=== PATIENT | male | born 1945 | race Caucasian/White ===

== ENCOUNTER → 2021-10-29 09:29 | Outpatient (CLI) | payer MEDICARE, SELFPAY ==
--- NOTE | ~2021-10-29 | XR_ITS ---
XR abdomen/kub 1V 10/29/2021 09:47 Indication: Right ureteral stone Procedure: KUB Comparison: No prior studies for comparison. Findings: There is a right renal stone measuring approximately 5 mm. There are pelvic phleboliths. Th ere are cholecystectomy clips. There are calcified granulomas of the spleen. Bowel gas pattern nonobs tructive with moderate colonic fecal loading. 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 There is moderate osteoarthritis of the hips. There is lumba r spondylosis. Impression: 1: Right nephrolithiasis. Reviewed, dictated and finalized at location A. T TRIMMER Impression: 1: Right nephrolithiasis.
== END ==
PROVIDERS: PCP Family Medicine; Visit Provider Urology
DX: N20.0 Calculus of kidney (principal)
CPT/HCPCS: 74018

== ENCOUNTER 2021-10-30 02:23 | Day surgery (SDC) | payer MEDICARE, SELFPAY ==
[2021-10-29 15:01] VITALS: BMI 28.6
--- NOTE | 2021-10-29 15:40 | PC.NURSE ---
Report to the Outpatient Waiting Room, entrance under the green pavilion located off [facility], at time _9:45AM on date _10/30/21 . OR Time: __11:45AM . - You and your visitor will be asked a series of questions to screen for COVID 19 for your protection. - A mask is required within the hospital. Preoperative COVID Testing Requirements: No COVID Test needed if: (proof is required; if not received patient will have Rapid Test prior to entry) - Patient has received COVID Vaccine at least 14 days prior to procedure date or - Patient has positive COVID test result within last 90 days of surgery date. COVID Test needed if above criteria is not met If not COVID vaccinated a COVID test must be conducted within 72 hours of surgery and patient is asked to isolate self from time of testing until procedure. You will go to the [employer] [facility] for your COVID testing. The [facility] is located at the corner of [address] [facility]. You will only be called if COVID results are positive and your surgeon may reschedule your elective surgery date. Patients may have clear liquids (water, carbonated beverages, clear teas, apple juice) until 3 hours prior to surgery with a maximum of 20 ounces. - No food from midnight until time of surgery - Infants may have breast milk until 4 hours before surgery, formula 6 hours prior to surgery. - Children will be allowed to drink immediately following surgery. If applicable, please bring a bottle or sippy cup to assist with drinking. Juice, water, soda, and popsicles are readily available. For infants on formula, please bring formula the day of surgery. Pacifiers are allowed. Take the following medications with a SIP of water the morning of surgery: ___PRIMIDONE, PROPRANOLOL, HYDROCODONE PRN, ZOFRAN PRN Medications to discontinue per physician ALL VITAMINS/SUPPLEMENTS-TODAY Date to take last dose Please no make-up, nail sri lankan, hairspray, perfume, deodorant, or body powder the day of surgery. No jewelry (including any body piercings) or valuables the day of surgery, leave them at home. Please take a shower or bath the night before, or the morning of, surgery with an antibacterial soap. Wear comfortable, loose fitting clothing. Children are encouraged to wear pajamas. - Jewelry must be removed prior to entering the operating room. Rings and piercings that are not removed may be cut off. - The hospital will not accept responsibility for valuables. - Please leave all valuables, including medications, at home the day of surgery. If you are going home after surgery, a licensed cab driver must drive you home. - NO public transportation without another adult. - We recommend that an adult stay with you for 24 hours following discharge. - We also recommend that you do not drive, make important decision, drink alcoholic beverages, or take any drugs that were not prescribed by your health care provider for at least 24 hours after your discharge time. For Pediatric surgeries, we recommend two adults accompany the child home (only one inside the building at this time). One visitor will be allowed to accompany the patient into the hospital. Patients visitor will be instructed to remain with patient at all times or leave the building. We will allow the visitor to come back to the postoperative area when patient is ready. Follow any additional instructions given to you from your surgeon. Telephone instructions given to ____PATIENT and asked if any additional questions and then verbalized understanding. Patient advised to call surgeon office or pre surgery nurse liaison [phone] if any additional questions.
[2021-10-30] VITALS (9 sets, daily range): BP systolic 100–166; BP diastolic 59–72; PULSE 53–66; RESP 10–18; TEMP 36.1–36.4; O2SAT 97–100
--- NOTE | ~2021-10-30 | XR_ITS ---
XR retrograde pyelo w/stent RT DATE: 10/30/2021 12:40 INDICATION: Right ureteral dilatation TECHNIQUE: 219.5 seconds fluoroscopy time 3.27 mGym2 COMPARISON: 10/29/2021 KUB FINDINGS: Retrograde pyelogram on the right reveals a narrowed area in the distal ureter which may be due to stricture, with mild proximal dilatation. Subsequent images reveal a balloon catheter inflated in this area. There is subsequent placement of a right internal urinary stent in expected position. IMPRESSION: Balloon dilatation of distal ureteral stricture; subsequent placement of right internal u rinary stent Reviewed, dictated and finalized at Location A. Reviewed, dictated and finalized at location A. NET C DEVELOPER IMPRESSION: Balloon dilatation of distal ureteral stricture; subsequent placeme nt of right internal urinary stent
--- NOTE | 2021-10-30 06:29 | WPDHPUPDATE1 ---
History and Physical Update Update Date/Time: 10/30/21 06:29 History and Physical has been reviewed, including an updated exam of the patient. There are NO changes in the patient's condition. Risks, benefits, and alternatives have been discussed and questions answered. Patient agrees to proceed with procedure.
[2021-10-30] MEDS: LACTATED RINGERS 1,000 ML 30 ML IV CONT ×2 (10:13→12:42)
--- NOTE | 2021-10-30 10:31 | WPDANESEPPF ---
Anes - Initial Pre Proc Eval Procedure: Operation Date: 10/30/21 11:45 Proposed Procedures p Cystoscopy, Right Ureteroscopy, Right Stone Extraction, Possible Right Stent Placement, Possible Right Retrograde Pyelogram, - Jose Coronel MD s Possible Laser Lithotripsy - Jose Coronel MD Date/Time: 10/30/21 10:31 Surgeon: Jose Coronel MD Pre Op Diagnosis: right ureteral stone Patient Data Age: 76 Gender: M Height: 1.7 m Weight: 83 kg Last Vital Signs Temp 36.4 C 10/30/21 10:28 Pulse 55 L 10/30/21 10:28 Resp 18 10/30/21 10:28 BP 130/59 L 10/30/21 10:28 Pulse Ox 97 10/30/21 10:28 Allergies Allergy/AdvReac Type Severity Reaction Status Date / Time No Known Allergies Allergy Verified 10/30/21 10:21 Home Medications Medication Instructions Recorded Confirmed Type finasteride 5 mg PO DAILY 10/29/21 10/30/21 History geriatric multivitamin-min 1 tablet PO DAILY 10/29/21 10/30/21 History [Multiple Vitamins 55 Plus] hydrocodone-acetaminophen 1 tablet PO Q8-10H PRN 10/29/21 10/30/21 History ondansetron 4 mg PO Q4-5H PRN 10/29/21 10/30/21 History primidone 50 mg PO 6XD 10/29/21 10/30/21 History propranolol 60 mg PO BID 10/29/21 10/30/21 History tamsulosin 0.4 mg PO DAILY 10/29/21 10/30/21 History Patient hx anesthesia problems: none Family hx anesthesia problems: none Results Review: All pre-operative results and documents have been reviewed as part of the pre-operative evaluation. [facility] Past Medical History Medical History Prostate cancer Tremor Social History Social History Smoking status: Never smoker Substance use: never Living arrangements: with family Additional living arrangements comments: Spiritual care concerns: No Anes - Eval Final PreProcedure Day of Procedure 10/30/21 10:31 Patient weight: overweight Heart: regular rate and rhythm Lungs: clear to auscultation Airway: Mallampati scale class II Neurological: alert and oriented Last oral intake: >/= 8 hours ASA classification: III Emergent: no Anesthetic plan: proceed Anesthesia type and monitoring: general LMA and standard monitoring Results Review: All pre-operative results and documents have been reviewed as part of the pre-operative evaluation. Informed Consent: The patient's anesthetic plan and its attendant risks and benefits were discussed with the patient/family/POA. Questions were solicited and answers provided to the satisfaction of the patient/family/POA.
[2021-10-30] MEDS: ceFAZolin 2 GM/D5W 50 ML 2 GM/50 ML BAG IVPB (11:28)
--- NOTE | 2021-10-30 12:12 | W.PM.PROC2 ---
Procedure Note - Detailed Date of Procedure 10/30/21 Pre-op Diagnosis Right ureteral and right renal stone Post-op Diagnosis Same Procedure Performed Cystoscopy, right retrograde pyelography, right ureteroscopy and right ureteral stent placement Surgeon Jose Coronel MD Anesthesia General Description of Procedure Patient brought to the operative suite was prepped and draped in routine sterile fashion while in dorsal lithotomy position after the uneventful induction of a general LMA anesthetic. Cystoscopy is undertaken with a 19 F rigid cystoscope. There was no urethral stricture. He has minimal residual prostate tissue following recent pelvic radiation for prostate cancer. He does have a somewhat high median bar. The bladder is slightly trabeculated. He has a single orthotopic ureteral orifice bilaterally. An 8 F bulb-tipped catheter was used to obtain a right retrograde pyelogram. There is narrowing in the right mid ureter at the iliac vessels with the suggestion of a double density that point represents a ureteral stone. Dilated the distal ureter with an 8 F 10 F dilator. I attempted to place a 7.5 F flexible ureteral scope could not advance beyond this point of narrowing in the right mid ureter at the iliac vessels. I dilated with a 10 cm balloon at 12 atmospheres for 4 minutes and still could not get a ureteral scope beyond that point. I tried both a and long and digital flexible ureteral scope. At this point I opted to place a 6 F variable length ureteral stent and allow for passive dilatation of the ureter. Will plan repeat axial imaging with either ESWL or ureteroscopy in approximately 1-2 weeks. Drains Yes Packing No Pathology None sent Complications No immediate complications Condition Stable Disposition PACU
== END 2021-10-30 14:45 | disposition home or self-care (01) ==
PROVIDERS: PCP Family Medicine; Visit Provider Urology
PROC: (CPT 52352; principal; 2021-10-30 11:45)
DX: N20.2 Calculus of kidney with calculus of ureter (principal); R10.9 Unspecified abdominal pain; R35.1 Nocturia; C61 Malignant neoplasm of prostate; Z90.49 Acquired absence of other specified parts of digestive tract; R25.1 Tremor, unspecified
CPT/HCPCS: 52332; 74420; A9270; C1726; C1758; C1769; C2617; J0690; J1100; J2370; J2405; J2704; J3010; J7120; Q9966

== ENCOUNTER 2021-10-31 08:46 | Emergency (ER) | payer MEDICARE, SELFPAY ==
--- NOTE | ~2021-10-31 | XR_ITS ---
EXAMINATION: XR abdomen/kub 1V DATE: 10/31/2021 10:07 INDICATION: Urolithiasis. TECHNIQUE: A supine view of the abdomen on 2 radiographs was obtained. COMPARISON: Abdomen radiographs 10/29/2021 FINDINGS: There are no dilated loops of bowel. There is a right internal ureteral stent in expected p osition. Surgical clips in the right upper quadrant are likely from cholecystectomy. Brachytherapy se eds overlie the prostate. There is internal fixation of right femur. IMPRESSION: 1. Right internal ureteral stent in expected position. No visible urolithiasis. Reviewed, dictated and finalized at location A. TH PROFESSOR
[2021-10-31 08:49] VITALS: BP 153/59; PULSE 62; RESP 18; TEMP 37; O2SAT 97
[2021-10-31 09:24] LABS: Basophils Percent Auto 0.1 % (0.2-1.2); Eosinophils Percent Auto 0.2 % (0-4.4); Hematocrit 43.9 % (42.0-52.0); Immature Granulocyte Absolute 0.04 K/mm3 (0.00-0.031); Immature Granulocyte Percent A 0.4 % (0-0.5); Lymphocytes Absolute Auto 0.45 K/mm3 (0.9-3.2); Mean Corpuscular HGB Conc 34.2 g/dl (32-36); Mean Corpuscular Hemoglobin 30.1 pg (26-34); Mean Platelet Volume 9.9 fl (7.4-10.4); Monocytes Absolute Auto 0.7 K/mm3 (0.1-0.6); Neutrophils Percent Auto 89.3 % (45.5-73.1); Platelet Count Result 155 k/mm3 (150-375); Red Blood Count 4.99 M/mm3 (4.6-6.20); White Blood Count 11.2 K/mm3 (4.5-10.0)
[2021-10-31 09:34] LABS: Add Urine Microscopic? YES; Appearance Urine Cloudy (Clear); Bacteria Urine 4+ /hpf; Bilirubin Urine Negative (Negative); Blood Urine 3+ (Negative); Color Urine Yellow (Yellow); Glucose Urine UA Negative (Negative); Ketones Urine 1+ mg/dL (Negative); Leukocyte Esterase Ur Negative LEU/UL (Negative); Mucus Urine Rare /lpf; Nitrate Urine Negative (Negative); Protein Urine 1+ mg/dL (Negative); RBC Urine >75 /hpf (0-2); Specific Grav Ur 1.014 (1.001-1.035); Urobilinogen Urine Negative mg/dL (<2.0)
[2021-10-31] MEDS: MORPHINE SULFATE (*CRX) 4 MG/ML INJ IV PUSH (09:41)
--- NOTE | 2021-10-31 09:44 | PC.NURSE ---
Pt states he took home prescribed zofran at approx 0800 this morning.
--- NOTE | 2021-10-31 09:48 | ED.ABDPAIN ---
HPI - Abdominal Pain General Chief Complaint: Abdominal Pain <MAJO Schreiber Last Filed: 10/31/21 13:19> Stated Complaint: pain lower abd /back <MAJO Schreiber Last Filed: 10/31/21 13:19> Time Seen by Provider: 10/31/21 09:08 <MAJO Schreiber Last Filed: 10/31/21 13:19> Source: patient <MAJO Schreiber Last Filed: 10/31/21 13:19> Mode of arrival: ambulatory <MAJO Schreiber Last Filed: 10/31/21 13:19> Limitations: no limitations <MAJO Schreiber Last Filed: 10/31/21 13:19> History of Present Illness HPI narrative: This is a 76-year-old male that presents to the emergency department for right flank pain present since last night. Reports he had a ureteral stent placed on the right by Dr. Coronel. Ever since this procedure he has had right lower quadrant and flank pain. Especially with urination. Not controlled with his oral pain medications. Initially he had blood in the urine, this has seemed to clear up. Denies fever or vomiting. <MAJO Schreiber Last Filed: 10/31/21 13:19> Related Data Home Medications: Home Medications Medication Instructions Recorded Confirmed finasteride 5 mg PO DAILY 10/29/21 10/30/21 geriatric multivitamin-min 1 tablet PO DAILY 10/29/21 10/30/21 hydrocodone-acetaminophen 1 tablet PO Q8-10H PRN 10/29/21 10/30/21 ondansetron 4 mg PO Q4-5H PRN 10/29/21 10/30/21 primidone 50 mg PO 6XD 10/29/21 10/30/21 propranolol 60 mg PO BID 10/29/21 10/30/21 tamsulosin 0.4 mg PO DAILY 10/29/21 10/30/21 <MAJO Schreiber Last Filed: 10/31/21 13:19> Allergies/Adverse Reactions: Allergies Allergy/AdvReac Type Severity Reaction Status Date / Time No Known Allergies Allergy Verified 10/30/21 10:21 <Iris Love PA-C - Last Filed: 10/31/21 13:19> Review of Systems Review of Systems: CONSTITUTIONAL: Denies fever GASTROINTESTINAL: Reports abdominal pain. Denies nausea, vomiting GENITOURINARY: Reports dysuria and hematuria. <Iris Love PA-C - Last Filed: 10/31/21 13:19> All systems reviewed & are unremarkable except as noted in HPI and below <Iris Love PA-C - Last Filed: 10/31/21 13:19> PMFSH Past Medical History Medical History: Medical History Prostate cancer Tremor <Iris Love PA-C - Last Filed: 10/31/21 13:19> Social History Social History: Social History Smoking status: Never smoker Substance use: never Additional living arrangements comments: Spiritual care concerns: No <MAJO Schreiber Last Filed: 10/31/21 13:19> Exam Narrative: GENERAL: Well-appearing, well-nourished, and in no acute distress. HEAD: Normocephalic, atraumatic. EYES: EOMI. CHEST: Clear to auscultation. No respiratory distress. No wheezes rales or rhonchi HEART: Regular rate and rhythm. No murmur heard. Normal peripheral pulses. ABDOMEN: Soft, nondistended, normal active bowel sounds. Tender to palpation in the right lower quadrant, without guarding EXTREMITIES: Normal range of motion. No edema. SKIN: Warm, dry, no rash. NEURO: No focal deficits. Alert and oriented x3. PSYCH: Normal mood and affect <Iris Love PA-C - Last Filed: 10/31/21 13:19> Course Vital Signs Vital signs: Vital Signs Temperature 98.6 F 10/31/21 08:49 Pulse Rate 62 10/31/21 08:49 Respiratory Rate 18 10/31/21 08:49 Blood Pressure 153/59 H 10/31/21 08:49 Pulse Oximetry 97 10/31/21 08:49 Temperature 98.6 F 10/31/21 08:49 Pulse Rate 75 10/31/21 13:28 Respiratory Rate 16 10/31/21 13:28 Blood Pressure 117/61 10/31/21 13:28 Pulse Oximetry 97 10/31/21 13:28 <Iris Lvoe PA-C - Last Filed: 10/31/21 13:19> MDM - Abdominal Pain MDM Narrative Medical decision making narrative: Patient presents to the
[2021-10-31 10:16] LABS: Alanine Aminotransferase 27 U/L (4-50); Albumin Level 3.9 g/dL (3.5-5.1); Alkaline Phosphatase 106 U/L (38-126); Anion Gap 8 mmol/L (8-16); Aspartate Amino Transferase 31 U/L (17-59); Bilirubin,Total 0.4 mg/dL (0.2-1.3); Blood Urea Nitrogen 21 mg/dL (9-20); Calcium 8.6 mg/dL (8.4-10.2); Carbon Dioxide 29 mmol/L (22-30); Chloride 99 mmol/L (98-107); Estimated CRCL calculation 31 ml/min; Estimated Glomerular Filt Rate 37; Glucose 127 mg/dL (65-110); Potassium 4.1 mmol/L (3.4-5.0); Sodium 136 mmol/L (137-145)
--- NOTE | 2021-10-31 11:03 | PC.NURSE ---
Pt states he has attempted to urinated 2x with only dribbles . Pt bladder scanned and shown to have approx 420ml in bladder. PA notified.
[2021-10-31] MEDS: SODIUM CHLORIDE 0.9% IV 500 ML 999 ML IV CONT (11:05)
[2021-10-31] MEDS: KETOROLAC 15 MG/ML VIAL (*BKC) IV PUSH (12:04)
[2021-10-31 13:28] VITALS: BP 117/61; PULSE 75; RESP 16; O2SAT 97
== END 2021-10-31 13:29 | disposition home or self-care (01) ==
PROVIDERS: Emergency Provider General Practice; PCP Family Medicine
DX: R33.9 Retention of urine, unspecified (principal); T83.84XA Pain due to genitourinary prosthetic devices, implants and grafts, initial encounter; Z85.46 Personal history of malignant neoplasm of prostate; Y73.2 Prosthetic and other implants, materials and accessory gastroenterology and urology devices associated with adverse incidents
CPT/HCPCS: 36415; 51702; 74018; 80053; 81001; 85025; 87086; 96361; 96365; 96375; 99284; J0131; J1885; J2270; J7040

== ENCOUNTER 2021-11-04 09:18 | Outpatient (CLI) | payer MEDICARE, SELFPAY ==
[2021-11-04 09:54] LABS: Prothrombin Time 13.2 Seconds (11.1-14.7)
== END 2021-11-04 09:19 | disposition home or self-care (01) ==
LOC: ANHSURGERY 09:25
PROVIDERS: PCP Family Medicine; Visit Provider Urology
DX: N20.2 Calculus of kidney with calculus of ureter (principal); Z01.818 Encounter for other preprocedural examination
CPT/HCPCS: 36415; 85610; 85730

== ENCOUNTER 2021-11-07 02:28 | Day surgery (SDC) | payer MEDICARE, SELFPAY ==
[2021-11-03 10:04] VITALS: BMI 28.6
--- NOTE | 2021-11-03 10:29 | PC.NURSE ---
ARRIVE AT 7:00AM TO IMAGING CENTER FOR SCHEDULED CT SCAN ON 11/07/21. Report to the Outpatient Waiting Room, entrance under the green pavilion located off [facility], at time _9:00AM on date _11/07/21 . OR Time: __11:00AM . - You and your visitor will be asked a series of questions to screen for COVID 19 for your protection. - A mask is required within the hospital. Preoperative COVID Testing Requirements: No COVID Test needed if: (proof is required; if not received patient will have Rapid Test prior to entry) - Patient has received COVID Vaccine at least 14 days prior to procedure date or - Patient has positive COVID test result within last 90 days of surgery date. COVID Test needed if above criteria is not met If not COVID vaccinated a COVID test must be conducted within 72 hours of surgery and patient is asked to isolate self from time of testing until procedure. You will go to the [facility] for your COVID testing. The [facility] is located at the corner of [address] [facility]. You will only be called if COVID results are positive and your surgeon may reschedule your elective surgery date. Patients may have clear liquids (water, carbonated beverages, clear teas, apple juice) until 3 hours prior to surgery with a maximum of 20 ounces. - No food from midnight until time of surgery 7:00AM, UNLESS OTHERWISE INSTRUCTED TO HOLD LIQUIDS PRIOR TO CT SCAN - Infants may have breast milk until 4 hours before surgery, formula 6 hours prior to surgery. - Children will be allowed to drink immediately following surgery. If applicable, please bring a bottle or sippy cup to assist with drinking. Juice, water, soda, and popsicles are readily available. For infants on formula, please bring formula the day of surgery. Pacifiers are allowed. Take the following medications with a SIP of water the morning of surgery: PROPRANOLOL, PRIMIDONE, HYDROCODONE NEEDED, ONDANSETRON NEEDED Medications to discontinue per physician ALL VITAMINS/SUPPLEMENTS 3 DAYS PRE-OP Date to take last dose 11/03/21 Please no make-up, nail indian, hairspray, perfume, deodorant, or body powder the day of surgery. No jewelry (including any body piercings) or valuables the day of surgery, leave them at home. Please take a shower or bath the night before, or the morning of, surgery with an antibacterial soap. Wear comfortable, loose fitting clothing. Children are encouraged to wear pajamas. - Jewelry must be removed prior to entering the operating room. Rings and piercings that are not removed may be cut off. - The hospital will not accept responsibility for valuables. - Please leave all valuables, including medications, at home the day of surgery. If you are going home after surgery, a licensed route sales delivery driver must drive you home. - NO public transportation without another adult. - We recommend that an adult stay with you for 24 hours following discharge. - We also recommend that you do not drive, make important decision, drink alcoholic beverages, or take any drugs that were not prescribed by your health care provider for at least 24 hours after your discharge time. For Pediatric surgeries, we recommend two adults accompany the child home (only one inside the building at this time). One visitor will be allowed to accompany the patient into the hospital. Patients visitor will be instructed to remain with patient at all times or leave the building. We will allow the visitor to come back to the postoperative area when patient is ready. Follow any additional instructions given to you from your surgeon. Telephone instructions given to __PATIENT and asked if any additional questions and then verbalized understanding. Patient advised to call surgeon office or pre surgery nurse liaison [phone] if any additional questions.
[2021-11-07] VITALS (8 sets, daily range): BP systolic 108–135; BP diastolic 56–68; PULSE 60–97; RESP 12–16; TEMP 36.2–36.3; O2SAT 98–100; BMI 27.3
--- NOTE | ~2021-11-07 | CT_ITS ---
EXAMINATION: CT abdomen pelvis wo con DATE: 11/07/2021 07:34 INDICATION: Right ureteral stone. TECHNIQUE: Computed tomography (CT) of the abdomen and pelvis was performed without intravenous contr ast. Automated exposure control and iterative reconstruction technique were employed. The dose-length product was 239.91 mGy-cm. COMPARISON: None. FINDINGS: The visualized portions of the lung bases demonstrate minimal atelectasis. No pleural effus ion. The heart size is normal. No pericardial effusion. There is a 13 mm cyst in the liver. There are changes of cholecystectomy. The spleen, pancreas, adrenal glands, and kidneys are normal. There is a right internal ureteral stent in expected position. There is a 4 mm stone in proximal right ureter a djacent to the stent. The prostate is severely enlarged. There are brachytherapy seeds in the prostat e. The bladder is decompressed by a Grajeda catheter. There is diffuse bladder wall thickening, likely secondary to chronic outlet obstruction. There is diverticulosis of the colon without evidence of div erticulitis. There are no dilated loops of bowel. The appendix is normal. There are no pathologically enlarged lymph nodes. There is no free intraperitoneal fluid. There is internal fixation of right fe mur. There is moderate lumbar spondylosis and severe thoracic spondylosis. There is a benign bone isl and in the sacrum. IMPRESSION: 1. 4 mm stone in proximal right ureter with right internal ureteral stent in expected position. Reviewed, dictated and finalized at location A. CUTTING MACHINE OPERATOR IMPRESSION: 1. 4 mm stone in proximal right ureter with right internal ureteral stent in e xpected position.
--- NOTE | ~2021-11-07 | XR_ITS ---
EXAMINATION: XR abdomen/kub 1V DATE: 11/07/2021 08:04 INDICATION: Urolithiasis. TECHNIQUE: A supine view of the abdomen on 2 radiographs was obtained. COMPARISON: CT abdomen and pelvis 11/07/2021 FINDINGS: There are no dilated loops of bowel. There is a 4 mm stone in proximal right ureter. There is a right internal ureteral stent in expected position. Surgical clips in the right upper quadrant a re likely from cholecystectomy. There are brachytherapy seeds in the prostate. There are phleboliths in the pelvis. There is internal fixation right femur. IMPRESSION: 1. 4 mm stone in proximal right ureter with right internal ureteral stent in expected position. Reviewed, dictated and finalized at location A. E PROFESSOR IMPRESSION: 1. 4 mm stone in proximal right ureter with right internal ureteral stent in ex pected position.
--- NOTE | 2021-11-07 06:33 | WPDHPUPDATE1 ---
History and Physical Update Update Date/Time: 11/07/21 06:33 History and Physical has been reviewed, including an updated exam of the patient. There are NO changes in the patient's condition. Risks, benefits, and alternatives have been discussed and questions answered. Patient agrees to proceed with procedure.
[2021-11-07] MEDS: LACTATED RINGERS 1,000 ML 30 ML IV CONT (09:31)
--- NOTE | 2021-11-07 10:21 | WPDANESEPPF ---
Anes - Initial Pre Proc Eval Procedure: Operation Date: 11/07/21 11:00 Proposed Procedures p Right Extracorporeal Shock Wave Lithotripsy - Jose Coronel MD s Possible Right Ureteroscopy, Stone Extraction, - Jose Coronel MD s Possible Holmium Laser Procedure - Jose Coronel MD Date/Time: 11/07/21 10:21 Surgeon: Jose Coronel MD Pre Op Diagnosis: Right ureteral kidney stones Patient Data Age: 76 Gender: M Height: 1.7 m Weight: 79.2 kg Last Vital Signs Temp 36.3 C L 11/07/21 09:18 Pulse 62 11/07/21 09:18 Resp 16 11/07/21 09:18 BP 135/63 11/07/21 09:18 Pulse Ox 100 11/07/21 09:18 Allergies Allergy/AdvReac Type Severity Reaction Status Date / Time No Known Allergies Allergy Verified 11/07/21 09:16 Home Medications Medication Instructions Recorded Confirmed Type finasteride 5 mg PO DAILY 10/29/21 11/07/21 History geriatric multivitamin-min 1 tablet PO DAILY 10/29/21 11/07/21 History hydrocodone-acetaminophen 1 tablet PO Q6-8H PRN 10/29/21 11/07/21 History ondansetron 4 mg PO Q4-5H PRN 10/29/21 11/07/21 History primidone 150 mg PO BID 10/29/21 11/07/21 History propranolol 60 mg PO BID 10/29/21 11/07/21 History tamsulosin 0.4 mg PO DAILY 10/29/21 11/07/21 History phenazopyridine 200 mg PO BID PRN #6 tablet 10/31/21 11/07/21 Rx Patient hx anesthesia problems: none Family hx anesthesia problems: none Results Review: All pre-operative results and documents have been reviewed as part of the pre-operative evaluation. [facility] Past Medical History Medical History Prostate cancer Tremor Social History Social History Smoking status: Never smoker Substance use: never Living arrangements: with family Additional living arrangements comments: Spiritual care concerns: No Anes - Eval Final PreProcedure Day of Procedure 11/07/21 10:21 Patient weight: overweight Heart: regular rate and rhythm Lungs: clear to auscultation Airway: Mallampati scale class II Neurological: alert and oriented Last oral intake: >/= 8 hours ASA classification: III Emergent: no Anesthetic plan: proceed Anesthesia type and monitoring: general LMA and standard monitoring Results Review: All pre-operative results and documents have been reviewed as part of the pre-operative evaluation. Informed Consent: The patient's anesthetic plan and its attendant risks and benefits were discussed with the patient/family/POA. Questions were solicited and answers provided to the satisfaction of the patient/family/POA.
--- NOTE | 2021-11-07 11:38 | W.PM.PROC2 ---
Procedure Note - Detailed Date of Procedure 11/07/21 Pre-op Diagnosis Right ureteral kidney stone Post-op Diagnosis Same Procedure Performed Right ESWL Surgeon Jose Coronel MD Anesthesia General Description of Procedure Prior to procedure a CT-abd/pelvis was obtaines to clarify status of right renal and ureteral stones. We found ONLY a 5mm right proximal ureteral stone without additional renal or ureteral calculi. The patient was brought to the operative suite where he was placed in the supine position on the Dornier lithotripsy table. The focal point of the lithotripter was placed at this 5mm right proximal ureteal calculus. A total of 3000 shocks were delivered at a power setting of 6. There appeared to be good fragmentation of the stone. The patient tolerated the procedure well and was taken to the recovery room in good condition. Drains No Packing No Pathology None sent Complications No immediate complications Condition Stable Disposition PACU
== END 2021-11-07 14:44 | disposition home or self-care (01) ==
PROVIDERS: PCP Family Medicine; Visit Provider Urology
PROC: (CPT 50590; principal; 2021-11-07 11:00)
DX: N20.1 Calculus of ureter (principal); Z85.46 Personal history of malignant neoplasm of prostate
CPT/HCPCS: 50590; 36415; 74018; 74176; 85610; 85730; J0131; J2704; J7120

== ENCOUNTER 2021-11-17 09:56 | Outpatient (CLI) | payer MEDICARE, SELFPAY ==
--- NOTE | ~2021-11-17 | XR_ITS ---
XR abdomen/kub 1V 11/17/2021 10:17 Indication: Ureteral stone Procedure: KUB Comparison: 11/07/2021 Findings: Bowel gas pattern is nonobstructive. Moderate colonic fecal loading. Interval removal of ri ght ureteral stent. No stone is identified overlying the expected location of the kidneys or ureters. There are pelvic phleboliths unchanged. Bowel gas pattern is nonobstructive. Moderate colonic fecal loading. Impression: 1: No definite renal or ureteral stones identified. Reviewed, dictated and finalized at location A. Impression: 1: No definite renal or ureteral stones identified.
== END 2021-11-17 09:57 | disposition home or self-care (01) ==
PROVIDERS: PCP Family Medicine; Visit Provider Urology
DX: N20.1 Calculus of ureter (principal)
CPT/HCPCS: 74018

== ENCOUNTER 2023-07-19 20:29 | Emergency (ER) | payer MEDICARE, SELFPAY ==
--- NOTE | ~2023-07-19 | CT_ITS ---
EXAMINATION: CT abdomen pelvis wo con DATE: 07/19/2023 22:04 INDICATION: Urinary retention TECHNIQUE: Computed tomography (CT) of the abdomen and pelvis was performed without intravenous contr ast. The dose-length product (DLP) was 524.45 mGy-cm. Automated exposure control and iterative recons truction technique were employed. COMPARISON: 11/07/2021 FINDINGS: Minimal dependent atelectasis is present in the lung bases. The heart size is normal. There is a 1.5 cm cyst of the left hepatic lobe. Changes of cholecystectomy are noted. The spleen, pancrea s, and adrenal glands are normal. The kidneys are unremarkable. There is circumferential wall thicken ing of the urinary bladder. The bladder is decompressed by Grajeda catheter. Prostatomegaly is noted. C olonic diverticulosis is present without evidence of diverticulitis. The appendix is normal. Antegrad e intramedullary neri is present in the right femur. There is moderate lumbar spondylosis. IMPRESSION: 1. Circumferential wall thickening of the urinary bladder which could reflect chronic outlet obstruct ion versus cystitis. Reviewed, dictated and finalized at location F. CHOOL TEACHER AIDE IMPRESSION: 1. Circumferential wall thickening of the urinary bladder which could reflect c hronic outlet obstruction versus cystitis.
[2023-07-19 20:30] VITALS: BP 154/63; PULSE 107; RESP 16; TEMP 36.6; O2SAT 99
--- NOTE | 2023-07-19 20:44 | ED.MALEGU ---
HPI - Male Genitourinary General Chief complaint: Urogenital-Male Stated complaint: unable to urinate Time Seen by Provider: 07/19/23 20:34 History of Present Illness [facility] Narrative: Patient presents emergency department with urinary retention. He has inability to urinate since 5:00 a.m. this morning. He is on tamosulin and sees Urology. However the only time he has had difficulty urinating was when he had a kidney stone. Patient complains lower abdominal discomfort. Denies all other review of systems. He is pacing the room appearing uncomfortable. Related Data Home Medications Medication Instructions Recorded Confirmed tamsulosin 0.4 mg capsule 0.4 mg PO DAILY 10/29/21 04/12/23 zstaefav-rlrjqcfe-mprcb acid 400 1 tablet PO DAILY 04/12/23 04/12/23 mcg-vit K 20 mcg-lycop 300 mcg tablet Allergies Allergy/AdvReac Type Severity Reaction Status Date / Time No Known Allergies Allergy Verified 07/19/23 20:29 Review of Systems Review of Systems: Review of systems negative except what is documented in the [facility] Past Medical History Medical History Prostate cancer Tremor Social History Social History Smoking status: Never smoker Substance use: never Living arrangements: with family Additional living arrangements comments: Spiritual care concerns: No Exam Narrative: GENERAL: Well-appearing, well-nourished, and in no acute distress. Uncomfortable pacing HEAD: Normocephalic, atraumatic. EYES: PERRLA and EOMI. ENT: Nares clear, no rhinorrhea or epistaxis. Mucous membranes moist. NECK: Supple. CHEST: Clear to auscultation. No respiratory distress. HEART: Regular rate and rhythm. ABDOMEN: Soft, nontender, distended. EXTREMITIES: Normal range of motion. No edema. SKIN: Warm, dry, no rash. NEURO: No focal deficits. Alert and oriented x3. PSYCH: Normal mood and affect. Course Course Emergency Course: Differential diagnosis includes but not limited to urinary tract infection, urinary retention Vital Signs Vital signs: Vital Signs Temperature 36.6 C 07/19/23 20:30 Pulse Rate 107 H 07/19/23 20:30 Respiratory Rate 16 07/19/23 20:30 Blood Pressure 154/63 H 07/19/23 20:30 Pulse Oximetry 99 07/19/23 20:30 Oxygen Delivery Room Air 07/19/23 20:30 Temperature 36.6 C 07/19/23 20:30 Pulse Rate 107 H 07/19/23 20:30 Respiratory Rate 16 07/19/23 20:30 Blood Pressure 154/63 H 07/19/23 20:30 Pulse Oximetry 99 07/19/23 20:30 Oxygen Delivery Room Air 07/19/23 20:30 MDM - Male Genitourinary MDM Narrative Medical decision making narrative: CT scan shows circumferential thickening of the bladder No kidney stone noted. No leukocyte esterase nitrites or white blood cells in his urine. Very consistent with outlet obstruction. Will DC with full and Lab Data 07/19/23 22:26 07/19/23 22:26 Labs: Lab Results 07/19/23 07/19/23 Range/Units 21:06 22:26 WBC 9.1 (4.5-10.0) K/mm3 RBC 5.22 (4.6-6.20) M/mm3 Hgb 14.7 (14.0-18.0) g/dL Hct 44.5 (42.0-52.0) % MCV 85.2 (80-100) fl MCH 28.2 (26-34) pg MCHC 33.0 (32-36) g/dl RDW 13.8 (11.5-14.5) % Plt Count 173 (150-375) k/mm3 MPV 10.3 (7.4-10.4) fl Immature Gran % (Auto) 0.3 (0-0.5) % Neut % (Auto) 79.6 H (45.5-73.1) % Lymph % (Auto) 9.9 L (18.3-44.2) % [place] % (Auto) 8.6 H (2.6-8.5) % Eos % (Auto) 1.3 (0-4.4) % Baso % (Auto) 0.3 (0.2-1.2) % Lymph # (Auto) 0.90 (0.9-3.2) K/mm3 [place] # (Auto) 0.8 H (0.1-0.6) K/mm3 Eos # (Auto) 0.1 (0-0.3) K/mm3 Baso # (Auto) 0.0 (0.0-0.1) K/mm3 Abs Immat Gran (auto) 0.03 (0.00-0.031) K/mm3 Absolute Neuts (auto) 7.3 H (1.3-6.7) K/mm3 Absolute Nucleated RBC 0.0 (0.0-0.012) K/mm3 Nucleated RBC % 0.0 (0.0-0.2) % Sodium 141 (137-
[2023-07-19 21:16] LABS: Appearance Urine Clear (Clear); Bacteria Urine None Seen /hpf; Bilirubin Urine Negative (Negative); Blood Urine 3+ (Negative); Color Urine Yellow (Yellow); Glucose Urine UA Negative (Negative); Ketones Urine Negative (Negative); Leukocyte Esterase Ur Negative LEU/UL (Negative); Nitrate Urine Negative (Negative); Non Pathogenic Casts 0-2; Protein Urine Trace mg/dL (Negative); RBC Urine >100 /hpf (0-2); Specific Grav Ur 1.012 (1.001-1.035); Squamous Epithelial Cell Urine None seen /hpf (Few); Urobilinogen Urine 0.2 mg/dL (<2.0); WBC Urine 0-5 /hpf; pH Urine 6.5 (5.0-9.0)
[2023-07-19 21:23] LABS: Add Urine Microscopic? YES
[2023-07-19 22:33] LABS: Basophils Percent Auto 0.3 % (0.2-1.2); Eosinophils Absolute Auto 0.1 K/mm3 (0-0.3); Eosinophils Percent Auto 1.3 % (0-4.4); Hematocrit 44.5 % (42.0-52.0); Hemoglobin 14.7 g/dL (14.0-18.0); Immature Granulocyte Absolute 0.03 K/mm3 (0.00-0.031); Immature Granulocyte Percent A 0.3 % (0-0.5); Lymphocytes Percent Auto 9.9 % (18.3-44.2); Mean Corpuscular Hemoglobin 28.2 pg (26-34); Mean Corpuscular Volume 85.2 fl (80-100); Mean Platelet Volume 10.3 fl (7.4-10.4); Monocytes Absolute Auto 0.8 K/mm3 (0.1-0.6); Monocytes Percent Auto 8.6 % (2.6-8.5); Neutrophils Absolute Auto 7.3 K/mm3 (1.3-6.7); Neutrophils Percent Auto 79.6 % (45.5-73.1); Platelet Count Result 173 k/mm3 (150-375); Red Blood Count 5.22 M/mm3 (4.6-6.20); Red Cell Distribution Width 13.8 % (11.5-14.5); White Blood Count 9.1 K/mm3 (4.5-10.0)
[2023-07-19 22:42] LABS: Alanine Aminotransferase 29 U/L (6-50); Albumin Level 4.2 g/dL (3.5-5.1); Alkaline Phosphatase 104 U/L (38-126); Anion Gap 11 mmol/L (8-16); Aspartate Amino Transferase 31 U/L (17-59); Bilirubin,Total 0.8 mg/dL (0.2-1.3); Blood Urea Nitrogen 18 mg/dL (9-20); Calcium 9.2 mg/dL (8.4-10.2); Carbon Dioxide 25 mmol/L (22-30); Chloride 105 mmol/L (98-107); Estimated CRCL calculation 52 ml/min; Estimated Glomerular Filt Rate > 60; Glucose 117 mg/dL (65-110); Potassium 3.9 mmol/L (3.4-5.0); Sodium 141 mmol/L (137-145)
[2023-07-19 23:09] VITALS: BP 148/61; PULSE 94; RESP 15; O2SAT 99
== END 2023-07-19 23:11 | disposition home or self-care (01) ==
PROVIDERS: Emergency Provider Emergency Medicine; PCP Family Medicine
DX: R33.9 Retention of urine, unspecified (principal); Z85.46 Personal history of malignant neoplasm of prostate
CPT/HCPCS: 36415; 51702; 74176; 80053; 81001; 85025; 99284

== ENCOUNTER 2023-07-23 10:48 | Emergency (ER) | payer MEDICARE, SELFPAY ==
[2023-07-23 11:18] VITALS: BP 142/60; PULSE 74; RESP 16; TEMP 36.6; O2SAT 98
--- NOTE | 2023-07-23 12:36 | ED.GENADULT ---
HPI - General Adult General Chief complaint: Urogenital-Male Stated complaint: removal catheter Time Seen by Provider: 07/23/23 11:45 History of Present Illness HPI narrative: 78-year-old male presenting ED for evaluation to have his Grajeda catheter removed. Patient states he had a Grajeda catheter placed a few days ago due to urinary retention. patient does have follow-up with Urology. Dr Coronel. Related Data Home Medications Medication Instructions Recorded Confirmed tamsulosin 0.4 mg capsule 0.4 mg PO DAILY 10/29/21 04/12/23 obiygwmo-bylwacbh-hgphz acid 400 1 tablet PO DAILY 04/12/23 04/12/23 mcg-vit K 20 mcg-lycop 300 mcg tablet Allergies Allergy/AdvReac Type Severity Reaction Status Date / Time No Known Allergies Allergy Verified 07/23/23 10:49 Review of Systems Review of Systems: All systems reviewed & are unremarkable except as noted in HPI and below PMFSH Past Medical History Medical History Prostate cancer Tremor Social History Social History Smoking status: Never smoker Substance use: never Living arrangements: with family Additional living arrangements comments: Spiritual care concerns: No Exam Narrative: APPEARANCE: Well appearing, no pain, no distress, well-nourished. HEAD: normocephalic, atraumatic. EYES: PERRLA/EOMI, conjunctivae clear. NOSE: Normal no drainage EARS:TMS clear with good light reflex. THROAT: Pharynx clear, no exudate. NECK: Supple. No adenopathy, no masses. RESPIRATORY: Airway patent, respirations nonlabored. Clear to auscultation bilaterally, no rales, rhonchi, wheezing. CARDIOVASCULAR: Regular rate and rhythm without murmurs rubs or gallops. ABDOMINAL: Soft, nontender, nondistended, normal bowel sounds MUSCULOSKELETAL: Moves all extremities. Strength/ROM intact, No edema, No calf tenderness. NEURO: Alert. Cranial nerves II through XII intact. Good gait. Good coordination SKIN: Warm, dry. Normal Color Course Course Emergency Course: 78-year-old male presents emerged department to have his Grajeda catheter removed. Urine had no significant clots and patient states he is aware of the risk of urinary retention if he has the Grajeda catheter removed. Patient states that he has been taking his Flomax consistently. patient's Grajeda catheter was removed and patient was to empty his bladder. Urine was concerning for urinary tract infection and patient was started on antibiotics. Patient and family were updated on the results of the workup, treatment plan reasons to return to the emergency department. All questions concerns were addressed. Vital Signs Vital signs: Vital Signs Temperature 97.9 F 07/23/23 11:18 Pulse Rate 74 07/23/23 11:18 Respiratory Rate 16 07/23/23 11:18 Blood Pressure 142/60 H 07/23/23 11:18 Pulse Oximetry 98 07/23/23 11:18 Oxygen Delivery Room Air 07/23/23 11:18 Temperature 97.9 F 07/23/23 11:18 Pulse Rate 74 07/23/23 11:18 Respiratory Rate 16 07/23/23 11:18 Blood Pressure 142/60 H 07/23/23 11:18 Pulse Oximetry 98 07/23/23 11:18 Oxygen Delivery Room Air 07/23/23 11:18 Medical Decision Making Vital Signs Vital Signs: Vital Signs Temperature 97.9 F 07/23/23 11:18 Pulse Rate 74 07/23/23 11:18 Respiratory Rate 16 07/23/23 11:18 Blood Pressure 142/60 H 07/23/23 11:18 Pulse Oximetry 98 07/23/23 11:18 Oxygen Delivery Room Air 07/23/23 11:18 Temperature 97.9 F 07/23/23 11:18 Pulse Rate 74 07/23/23 11:18 Respiratory Rate 16 07/23/23 11:18 Blood Pressure 142/60 H 07/23/23 11:18 Pulse Oximetry 98 07/23/23 11:18 Oxygen Delivery Room Air 07/23/23 11:18 Lab Data Lab results reviewed: Yes I reviewed the patient's lab results. Labs: Lab Results 07/23/23 Range/Units 12:40 Urine Color Red H (Yellow) Urine Appearan
--- NOTE | 2023-07-23 12:47 | PC.NURSE ---
Grajeda catheter removed per Dr. Derek Case.
[2023-07-23 12:55] LABS: Bacteria Urine None Seen /hpf; Non Pathogenic Casts 0-2; RBC Urine >100 /hpf (0-2); Squamous Epithelial Cell Urine Few /hpf (Few); WBC Urine 21-50 /hpf
[2023-07-23 13:02] LABS: Appearance Urine Turbid (Clear); Bilirubin Urine 1+ (Negative); Blood Urine 3+ (Negative); Color Urine Red (Yellow); Glucose Urine UA Negative (Negative); Ketones Urine Negative (Negative); Leukocyte Esterase Ur 2+ LEU/UL (Negative); Nitrate Urine Negative (Negative); Protein Urine 3+ mg/dL (Negative); Specific Grav Ur 1.023 (1.001-1.035); Urobilinogen Urine 0.2 mg/dL (<2.0)
[2023-07-23 13:03] LABS: Add Urine Microscopic? YES
== END 2023-07-23 13:23 | disposition home or self-care (01) ==
PROVIDERS: Emergency Provider Emergency Medicine; PCP Family Medicine
DX: N39.0 Urinary tract infection, site not specified (principal); R33.9 Retention of urine, unspecified; Z85.46 Personal history of malignant neoplasm of prostate
CPT/HCPCS: 81001; 87086; 99283